=== PATIENT | male | born 1960 | race Caucasian/White ===

== ENCOUNTER 2023-03-20 20:40 | Inpatient (IN) | payer BC ==
[2023-03-20] MEDS ORDERED: IBUPROFEN 400 MG TAB ONE (21:21)
[2023-03-20] MEDS ORDERED: LORazepam 2 MG/ML VIAL ONE (21:21)
[2023-03-20] MEDS ORDERED: NA CHLORIDE 0.9% 1,000 ML ONE ×2 (21:21→22:57)
[2023-03-20 21:26] LABS: Absolute Lymphocytes (CBC) 1.7 K/uL (0.7-4.9); Hematocrit 32.7 % (39.6-49.0); Lymphocytes % 19.9 % (15.3-44.8); MCV 95.9 fL (80-100); MPV 6.5 fL (7.6-11.3); Platelets 293 thou/uL (152-406)
[2023-03-20 21:36] LABS: Protime INR 1.02
--- NOTE | 2023-03-20 21:36 | RAD REPORT ---
EXAM DESCRIPTION: CT - Head Brain Wo Cont - 03/20/2023 9:23 pm CLINICAL HISTORY: Dizziness COMPARISON: none TECHNIQUE: Computed axial tomography of the head was obtained. IV contrast was not requested. All CT scans are performed using dose optimization technique as appropriate and may include automated exposure control or mA/KV adjustment according to patient size. FINDINGS: An intracranial bleed is not seen The ventricles are normal in caliber No significant hypodense areas within the brain visualized No extra-axial fluid collection is noted. Fluid within the sinuses/ mastoids is not seen IMPRESSION: No acute intracranial abnormality is seen If patient's symptoms persist MRI of the brain would be recommended
--- NOTE | 2023-03-20 21:38 | RAD REPORT ---
EXAM DESCRIPTION: RAD -Hand Left 3 View - 03/20/2023 9:17 pm CLINICAL HISTORY: Left hand pain status post injury FINDINGS: No fracture or dislocation is seen.
[2023-03-20 21:50] LABS: ALT/SGPT 32 U/L (16-61); AST/SGOT 25 U/L (15-37); Albumin 3.9 g/dL (3.4-5.0); Alkaline Phosphatase 66 U/L (45-117); BUN Blood Urea Nitrogen 4 mg/dL (7-18); Bicarbonate 18 mEq/L (21-32); Bilirubin Direct 0.1 mg/dL (0-0.2); Bilirubin Indirect, Calculated 0.3 mg/dL (0.2-0.8); Bilirubin Total 0.4 mg/dL (0.2-1.0); Glomerular Filtration Rate 84 ml/min (=/>90); Glucose Level 129 mg/dL (74-106); Potassium 3.6 mEq/L (3.5-5.1); Protein, Total 7.4 g/dL (6.4-8.2); Sodium Level 121 mEq/L (136-145)
[2023-03-20 23:19] LABS: Barbiturates NEGATIVE (NEGATIVE); Benzodiazepines NEGATIVE (NEGATIVE); Cocaine NEGATIVE (NEGATIVE); METHAMPHETAM NEGATIVE (NEGATIVE); Opiates NEGATIVE (NEGATIVE); Phencyclidine NEGATIVE (NEGATIVE); THC Cannibis NEGATIVE (NEGATIVE)
--- NOTE | 2023-03-20 23:21 | ER ---
Nurse's Notes [facility] Name: Wilfredo Orellana Age: 62 yrs Sex: Male : 1960 Arrival Date: 03/20/2023 Time: 20:40 Bed 16 Private MD: Diagnosis: Hypo-osmolality and hyponatremia;Hyponatremia, acute seizure related to hyponatremia, left hand contusion, left hand abrasion, history of alcohol abuse, altered mental status Presentation: 03/20 20:53 Chief complaint: Patient states: pt was getting ready to come to ER for left hand as6 injury from a crossbow and pt felt weak while getting ready and reported tremors. on arrival to ER pt had a near syncopal episode in the lobby and was assisted to ground. pt reports no hitting of head. Coronavirus screen: At this time, the client does not indicate any symptoms associated with coronavirus-19. Ebola Screen: No symptoms or risks identified at this time. Initial Sepsis Screen: Does the patient meet any 2 criteria? No. Patient's initial sepsis screen is negative. Does the patient have a suspected source of infection? No. Patient's initial sepsis screen is negative. Risk Assessment: Do you want to hurt yourself or someone else? Patient reports no desire to harm self or others. Onset of symptoms was March 20, 2023. 20:53 Acuity: MEDINA 2 as6 20:53 Method Of Arrival: Wheelchair as6 Historical: - Allergies: 20:51 No Known Allergies; as6 - PMHx: 20:51 Hypertensive disorder; Hypothyroidism; Hypercholesterolemia; as6 - PSHx: 20:51 elbow; as6 - Immunization history:: Last tetanus immunization: > 10 years ago. - Social history:: Smoking status: Patient reports use of chewing tobacco. - Family history:: not pertinent. Screenin:55 [facility] ED Fall Risk Assessment (Adult) Score/Fall Risk Level 3 or more points = High as6 Risk. Abuse screen: Denies threats or abuse. Denies injuries from another. Nutritional screening: No deficits noted. Tuberculosis screening: No symptoms or risk factors identified. Assessment: 21:57 General: Appears uncomfortable, well groomed, well developed, well nourished, Behavior me1 is calm, cooperative, appropriate for age, Reports injury to left hand that happened earlier today with a crossbow. reports patient was in severe pain and weak and started having tremors. Upon arrival to ER when coming inside lobby the patient had a near syncopal episode and was assisted to the floor. Patient did not fall and denies hitting his head. Pain: Complains of pain in left hand Pain does not radiate. Pain currently is 10 out of 10 on a pain scale. Quality of pain is described as throbbing, Pain began suddenly, Is continuous. Neuro: Level of Consciousness is awake, alert, obeys commands, Oriented to person, place, time, situation, Appropriate for age. Neuro: Reports a syncopal episode. Cardiovascular: Capillary refill < 3 seconds Patient's skin is warm and dry. Respiratory: Airway is patent Respiratory effort is even, unlabored, Respiratory pattern is regular, symmetrical. Musculoskeletal: Reports pain in left hand since about 4:30 pm when he injured his left hand with a crossbow. . 22:40 Reassessment: Patient and/or family updated on plan of care and expected duration. Pain ha1 level reassessed. Patient is alert, oriented x 3, equal unlabored respirations, skin warm/dry/pink. 23:40 Reassessment: Patient and/or family updated on plan of care and expected duration. Pain ha1 level reassessed. Patient is alert, oriented x 3, equal unlabored respirations, skin warm/dry/pink. 03/21 00:40 Reassessment: Patient and/or family updated on plan of care and expected duration. Pain ha1 level reassessed. Patient is alert, oriented x 3, equal unlabored respirations, skin warm/dry/pink. 00:50 Reassessment: report given to TIFFANIE Knowles. ha1 Vital Signs: 03/20 20:52 BP 153 / 94; Pulse 97; Resp 23 S; Temp 98(O); Pulse Ox 100% on R/A; Weight 74.84 kg as6 (R); Height 5 ft. 9 in. (R); Pain 03/16; 22:45 BP 130 / 91; Pulse 97; Resp 17 S; Pulse Ox 100% on R/A; ha1 03/21 00:08 BP 137 / 94; Pulse 98; Resp 16; Pulse Ox 100% on R/A; me1 01:00 BP 137 / 95; Pulse 98; Resp 16 S; Pulse Ox 100% on R/A; ha1 03/20 20:52 Body Mass Index 24.37 (74.84 kg, 175.26 cm) as6 03/20 20:52 Pain Scale: Adult as6 ED Course: 03/20 20:42 Patient arrived in ED. jj6 20:42 Aamir Schafer MD is Attending Physician. sp4 20:50 Arm band placed on. as6 20:52 Maria Del Rosario Lopez RN is Primary Nurse. me1 20:55 Triage completed. as6 20:55 Placed in gown. Bed in low position. Call light in reach. Side rails up X2. Adult w/ as6 patient. 21:06 Inserted saline lock: 22 gauge in right antecubital area, using aseptic technique. me1 21:06 Acetaminophen Sent. me1 21:06 Basic Metabolic Panel Sent. me1 21:06 CBC with Diff Sent. me1 21:06 ETOH Level Sent. me1 21:06 Hepatic Function Sent. me1 21:06 PT-INR Sent. me1 21:06 Ptt, Activated Sent. me1 21:19 Hand Left 3 View XRAY In Process Unspecified. EDMS 21:25 CT Head Brain wo Cont In Process Unspecified. EDMS 21:57 Provided Education on: POC. Verbalized understanding. . me1 21:57 No provider procedures requiring assistance completed. me1 23:19 Orion Patino MD is Hospitalizing Provider. sp4 23:20 BMP Sent. me1 03/21 00:05 Report received from TIFFANIE Villalobos. ha1 01:29 Patient admitted, IV remains in place. as6 Administered Medications: 03/20 21:14 Drug: Ativan IVP 2 mg IVP once Route: IVP; Site: right antecubital; me1 21:56 Follow up: Response: No adverse reaction me1 21:14 Drug: Ibuprofen PO 800 mg PO once Route: PO; me1 21:56 Follow up: Response: No adverse reaction me1 21:15 Drug: NS 0.9% IV 1000 ml IV at 1 bolus Per protocol; 1000 mL bolus Route: IV; Rate: 1 me1 bolus; Site: right antecubital; 22:50 Drug: NS 0.9% IV 1000 ml IV at 1 bolus Per protocol; 1000 mL bolus Route: IV; Rate: 1 ha1 bolus; Site: right antecubital; 23:34 Drug: Keppra IV 1000 mg IV at bolus once Route: IV; Rate: bolus; Site: right ha1 antecubital; 03/21 00:00 Follow up: Response: No adverse reaction; IV Status: Completed infusion ha1 03/20 23:38 Not Given (Patient Objection): tetanus-diphtheria toxoidped 0.5 ml IM once; Provide me1 Vaccine Information Statement (VIS). Medication: 03/21 01:28 VIS not applicable for this client. as6 Outcome: 03/20 23:20 Decision to Hospitalize by Provider. sp4 03/21 01:28 Admitted to ICU accompanied by nurse, via stretcher, room 1, on monitor, with chart, as6 Condition: stable Instructed on the need for admit, 01:29 Patient left the ED. as6 Signatures: Dispatcher [employer] Christie [email or web address] Tavon Whitmore RN RN as6 Mary Garza RN RN 1 Aamir Schafer MD MD sp4 Maria Del Rosario Lopez RN RN me1
--- NOTE | 2023-03-20 23:21 | EDPHYS ---
Physician Documentation [facility] Name: Wilfredo Orellana Age: 62 yrs Sex: Male : 1960 Arrival Date: 03/20/2023 Time: 20:40 Bed 16 Private MD: ED Physician Aamir Schafer HPI: 03/20 20:42 This 62 yrs old Male presents to ER via Unassigned with complaints of Seizure.sp4 23:27 Patient is 62-year-old male with history of prolonged alcohol abuse history of sp4 detoxification rehabilitation starting 02/16/2023 and exiting rehabilitation on 03/16/2023 at the rehabilitation facility in [place]. Today patient has developed generalized weakness developed convulsive episode lasting few minutes on the parking lot of the hospital. Patient states that today at home he sustained contusion and abrasion to the left hand via the handle of a crossbow. Patient then rubbed CBD oil on his left hand and developed generalized weakness. Patient was brought to the parking lot of the hospital where he developed convulsive episode. Patient was unresponsive for several minutes after that he became responsive. Patient denied any past medical history of seizures reported history of hypertension he takes olmesartan . Denied any alcohol abuse since he has entered into rehab on 02/16/2023. Historical: - Allergies: 20:51 No Known Allergies; as6 - PMHx: 20:51 Hypertensive disorder; Hypothyroidism; Hypercholesterolemia; as6 - PSHx: 20:51 elbow; as6 - Immunization history:: Last tetanus immunization: > 10 years ago. - Social history:: Smoking status: Patient reports use of chewing tobacco. - Family history:: not pertinent. ROS: 23:27 Constitutional: Negative for fever, chills, and weight loss, positive for generalized sp4 weakness, episode of unresponsiveness, an episode of convulsive activity. 23:27 MS/Extremity: Positive left hand injury, left hand contusion left hand abrasion 23:27 All other systems are negative, Exam: 23:30 Constitutional: This is a well developed, well nourished patient who is awake, alert, sp4 and in no acute distress. Head/Face: Normocephalic, atraumatic. Eyes: Pupils equal round and reactive to light, extra-ocular motions intact. Lids and lashes normal. Conjunctiva and sclera are not injected. Cornea within normal limits. Periorbital areas with no swelling, redness, or edema. ENT: Nares patent. No nasal discharge, no septal abnormalities noted. Tympanic membranes are normal and external auditory canals are clear. Oropharynx with no redness, swelling, or masses, exudates, or evidence of obstruction, uvula midline. Mucous membranes moist. Neck: Trachea midline, no thyromegaly or masses palpated, and no cervical lymphadenopathy. Supple, full range of motion without nuchal rigidity, or vertebral point tenderness. Chest/axilla: Normal chest wall appearance and motion. Nontender with no deformity. No lesions are appreciated. Cardiovascular: Regular rate and rhythm with a normal S1 and S2. No gallops, murmurs, or rubs. Normal PMI, no JVD. No pulse deficits. Respiratory: Lungs have equal breath sounds bilaterally, clear to auscultation and percussion. No rales, rhonchi or wheezes noted. No increased work of breathing, no retractions or nasal flaring. Abdomen/GI: Soft, non-tender, with normal bowel sounds. No distension or tympany. No guarding or rebound. No evidence of tenderness throughout. Back: No spinal tenderness. No costovertebral tenderness. Skin: Warm, dry with normal turgor. Normal color with no rashes, no lesions, and no evidence of cellulitis. MS/ Extremity: Pulses equal, no cyanosis. Neurovascular intact. Full, normal range of motion. Left hand dorsal surface ulnar side contusion, hematoma, abrasion . Neuro: Awake and alert, GCS 15, oriented to person, place, time, and situation. Cranial nerves II-XII grossly intact. Motor strength 5/5 in all extremities. Sensory grossly intact. Psych: Awake, alert, with orientation to person, place and time. Behavior, mood, and affect are within normal limits Vital Signs: 20:52 BP 153 / 94; Pulse 97; Resp 23 S; Temp 98(O); Pulse Ox 100% on R/A; Weight 74.84 kg as6 (R); Height 5 ft. 9 in. (R); Pain 10/10; 22:45 BP 130 / 91; Pulse 97; Resp 17 S; Pulse Ox 100% on R/A; ha1 03/21 00:08 BP 137 / 94; Pulse 98; Resp 16; Pulse Ox 100% on R/A; me1 01:00 BP 137 / 95; Pulse 98; Resp 16 S; Pulse Ox 100% on R/A; ha1 03/20 20:52 Body Mass Index 24.37 (74.84 kg, 175.26 cm) as6 03/20 20:52 Pain Scale: Adult as6 MDM: 03/20 20:49 Patient medically screened. sp4 23:20 Differential diagnosis: cerebral vascular accident, drug overdose, cardiac arrhythmia, sp4 seizure, TIA. Data reviewed: vital signs, nurses notes, lab test result(s), radiologic studies, CT scan, plain films. Consideration of Admission/Observation Patient was admitted/placed on observation. Escalation of care including admission/observation considered. Management of patient was discussed with the following: Hospitalist: Admission team. ED course: Patient's sodium is very low at 120 with repeat sodium 121. This is the most likely cause of the seizure. Patient reports he has not had alcohol since he and third detoxification facility on 02/16/2023. Patient was discharged from detoxification facility on 03/16/2023. . 23:25 ED course: CT head - EXAM DESCRIPTION: CT - Head Brain Wo Cont - 03/20/2023 9:23 pm sp4 CLINICAL HISTORY: Dizziness COMPARISON: none TECHNIQUE: Computed axial tomography of the head was obtained. IV contrast was not requested. All CT scans are performed using dose optimization technique as appropriate and may include automated exposure control or mA/KV adjustment according to patient size. FINDINGS: An intracranial bleed is not seen The ventricles are normal in caliber No significant hypodense areas within the brain visualized No extra-axial fluid collection is noted. Fluid within the sinuses/ mastoids is not seen IMPRESSION: No acute intracranial abnormality is seen If patient's symptoms persist MRI of the brain would be recommended. ED course: Hand X ray - EXAM DESCRIPTION: RAD -Hand Left 3 View - 03/20/2023 9:17 pm CLINICAL HISTORY: Left hand pain status post injury FINDINGS: No fracture or dislocation is seen.. 03/20 20:48 Order name: Urine Drug Screen; Complete Time: 23:31 sp4 03/20 20:49 Order name: Acetaminophen; Complete Time: 22:07 sp4 03/20 20:49 Order name: Basic Metabolic Panel; Complete Time: 22:07 sp4 03/20 20:49 Order name: CBC with Diff; Complete Time: 22:07 03/20 20:49 Order name: ETOH Level; Complete Time: 22:07 03/20 20:49 Order name: Hepatic Function; Complete Time: 22:07 03/20 20:49 Order name: PT-INR; Complete Time: 22:07 03/20 20:49 Order name: Ptt, Activated; Complete Time: 22:07 03/20 20:49 Order name: Salicylate; Complete Time: 22:07 03/20 22:07 Order name: BMP; Complete Time: 23:50 03/20 23:12 Order name: Osmolality, Serum; Complete Time: 23:58 03/20 23:12 Order name: Urine Osmolality; Complete Time: 23:58 03/20 23:12 Order name: Urine Potassium Random; Complete Time: 23:29 03/20 23:12 Order name: Urine Sodium Random; Complete Time: 23:29 wv03/20 23:12 Order name: Urine Creatinine; Complete Time: 23:50 03/20 23:13 Order name: BNP; Complete Time: 23:50 03/20 20:49 Order name: CT Head Brain wo Cont; Complete Time: 22:07 03/20 20:50 Order name: Hand Left 3 View XRAY; Complete Time: 22:07 03/20 20:49 Order name: EKG; Complete Time: 20:50 03/20 20:49 Order name: EKG - Nurse/Tech; Complete Time: 21:34 03/20 20:49 Order name: IV Saline Lock; Complete Time: 21:06 03/20 20:49 Order name: Labs collected and sent; Complete Time: 21:06 03/20 23:19 Order name: Wound Care; Complete Time: 00:16 sp4 Administered Medications: 21:14 Drug: Ativan IVP 2 mg IVP once Route: IVP; Site: right antecubital; me1 21:56 Follow up: Response: No adverse reaction me1 21:14 Drug: Ibuprofen PO 800 mg PO once Route: PO; me1 21:56 Follow up: Response: No adverse reaction me1 21:15 Drug: NS 0.9% IV 1000 ml IV at 1 bolus Per protocol; 1000 mL bolus Route: IV; Rate: 1 me1 bolus; Site: right antecubital; 22:50 Drug: NS 0.9% IV 1000 ml IV at 1 bolus Per protocol; 1000 mL bolus Route: IV; Rate: 1 ha1 bolus; Site: right antecubital; 23:34 Drug: Keppra IV 1000 mg IV at bolus once Route: IV; Rate: bolus; Site: right ha1 antecubital; 03/21 00:00 Follow up: Response: No adverse reaction; IV Status: Completed infusion ha1 03/20 23:38 Not Given (Patient Objection): tetanus-diphtheria toxoidped 0.5 ml IM once; Provide me1 Vaccine Information Statement (VIS). Disposition Summary: 03/20/23 23:20 Hospitalization Ordered Notes: Hospitalization Status: Inpatient Admission sp4 Provider: Orion Patino spKristin Condition: Serious sp4 Problem: new sp4 Symptoms: have improved sp4 Bed/Room Type: Standard sp4 Location: Intensive Care Unit(03/20/23 23:27) sp4 Room Assignment: 1-(03/21/23 00:08) cg Diagnosis - Hypo-osmolality and hyponatremia sp4 - Hyponatremia, acute seizure related to hyponatremia, left hand contusion, left hand sp4 abrasion, history of alcohol abuse, altered mental status Forms: - Medication Reconciliation Form sp4 - SBAR form sp4 - Leadership Thank You Letter sp4 Critical care time excluding procedures: 23:26 Critical care time: Bedside Care: 46 minutes, Consultation: 12 minutes, Family sp4 Intervention: 12 minutes. Total time: 70 minutes Signatures: Dispatcher [employer] Harjinder Kovacs, INSURANCE LOSS ASSESSOR-C INSURANCE LOSS ASSESSOR-Cla1 Jayne Mae, RN RN cg Tavon Whitmore, TIFFANIE fisher6 Mary Garza RN RN ha1 Aamir Schafer MD MD sp4 Maria Del Rosario Lopez RN RN me1 Corrections: (The following items were deleted from the chart) 23:20 Telemetry/MedSurg (Inpatient) sp4 sp4 23: 23:20 sp4 sp4 03/21 00:08 03/20 23:27 sp4 cg
[2023-03-20 23:30] LABS: Methadone ND (NEGATIVE)
[2023-03-20] MEDS ORDERED: TDAP (DIPHTH,PERTUSS(ACELL),TET VAC) 0.5 ML VIAL IMVAC ONE (23:37)
[2023-03-20] MEDS ORDERED: LEVETIRACETAM 500 MG/5 ML VIAL IV ONE (23:37)
[2023-03-20] MEDS ORDERED: NA CHLORIDE 0.9% 100 ML ONE (23:37)
[2023-03-20 23:48] LABS: Potassium 4.1 mEq/L (3.5-5.1)
[2023-03-21] MEDS ORDERED: ONDANSETRON 4 MG/2 ML VIAL IV PRN (00:26)
[2023-03-21] MEDS ORDERED: ACETAMINOPHEN 500 MG TAB PO PRN (00:26)
--- NOTE | 2023-03-21 00:27 | P.HP ---
Certification for Inpatient Patient admitted to: Inpatient With expected LOS: >2 Midnights Patient will require the following post-hospital care: None Practitioner: I am a practitioner with admitting privileges, knowledge of patient current condition, hospital course, and medical plan of care. Services: Services provided to patient in accordance with Admission requirements found in Title 42 Section 412.3 of the Code of Federal Regulations <Harjinder Lai - Last Filed: 03/21/23 00:24> Patient History Date of Service: 03/21/23 Reason for admission: Hyponatremia, syncope History of Present Illness: 62-year-old male with history of hypertension, hyperlipidemia, hypothyroidism, alcohol abuse who was recently discharged from a rehab facility for alcohol presents emergency department chief complaint of weakness, syncope. He used to drink approximately 12 pack/day last drink was on February 16. He was out hunting yesterday and had a minor injury to his hand from a crossbow, was getting ready to come to the hospital to be evaluated for this when changing his close he had a near syncopal episode. His dropped him off at the front of the hospital and when he was walking towards the front he had a single episode witnessed by bystanders who assisted him to the ground. He did report losing consciousness during this episode which lasted for 30 seconds to 1 minute. There was some questionable seizure activity but it sounds more like syncope rather than seizure, there is no postictal period. He was evaluated in the emergency department his initial labs were significant for a sodium of 121 and chloride of 86 bicarb of 18 glucose 129, he was given 2 L of IV fluidsNS in the emergency department repeat chemistry was obtained between his 2 L of fluids sodium remains the same at 121 chloride 90 bicarb 22 LFTs are normal BNP 91 urine electrolytes ordered and pending he does take medication for blood pressure although he is unsure what kind he does not think it includes a diuretic like hydrochlorothiazide. He has no known history of hyponatremia. CT of the head was performed which was negative for acute findings. ED provider wishes to admit patient for further evaluation and management of syncope, hyponatremia. - Past Medical/Surgical History -: Hypertension -: Hyperlipidemia -: Hypothyroidism -: History of alcohol abuse -: Left elbow surgery Psychosocial/ Personal History: Lives at home with his - Family History Family History: Reviewed- Non-Contributory - Social History Smoking Status: Never smoker Alcohol use: No CD- Drugs: No Caffeine use: Yes Place of Residence: Home <Harjinder Lai Ephraim Dumont - Last Filed: 03/21/23 00:24> Date of Service: 03/21/23 <Orion Patino - Last Filed: 03/21/23 12:47> Review of Systems 10-point ROS is otherwise unremarkable General: Weakness, Malaise <JoelleHarjinder Dumont - Last Filed: 03/21/23 00:24> Physical Examination - Physical Exam General: Alert, In no apparent distress, Oriented x3 HEENT: Atraumatic, PERRLA, Mucous membr. moist/pink, EOMI, Sclerae nonicteric Neck: Supple, 2+ carotid pulse no bruit, No LAD, Without JVD or thyroid abnormality Respiratory: Clear to auscultation bilaterally, Normal air movement Cardiovascular: Regular rate/rhythm, Normal S1 S2 Capillary refill: <2 Seconds Gastrointestinal: Normal bowel sounds, No tenderness Musculoskeletal: No tenderness Integumentary: No rashes Neurological: Normal speech, Normal strength at 5/5 x4 extr, Normal tone, Normal affect - Studies Laboratory Data (last 24 hrs) 03/20/23 03/20/23 03/20/23 23:18 21:03 21:03 WBC 8.50 Hgb 11.5 L Hct 32.7 L Plt Count 293 PT 11.2 INR 1.02 APTT 28.0 Sodium 121 L Potassium 4.1 D BUN 3 L Creatinine 0.76 Glucose 124 H Total Bilirubin AST ALT Alkaline Phosphatase 03/20/23 21:03 WBC Hgb Hct Plt Count PT INR APTT Sodium 121 L Potassium 3.6 BUN 4 L Creatinine 1.02 Glucose 129 H Total Bilirubin 0.4 AST 25 ALT 32 Alkaline Phosphatase 66 <JoelleHarjinder Dumont - Last Filed: 03/21/23 00:24> - Studies Laboratory Data (last 24 hrs) 03/20/23 03/20/23 03/20/23 23:18 21:03 21:03 WBC 8.50 Hgb 11.5 L Hct 32.7 L Plt Count 293 PT 11.2 INR 1.02 APTT 28.0 Sodium 121 L Potassium 4.1 D BUN 3 L Creatinine 0.76 Glucose 124 H Total Bilirubin AST ALT Alkaline Phosphatase 03/20/23 21:03 WBC Hgb Hct Plt Count PT INR APTT Sodium 121 L Potassium 3.6 BUN 4 L Creatinine 1.02 Glucose 129 H Total Bilirubin 0.4 AST 25 ALT 32 Alkaline Phosphatase 66 <Orion Patino - Last Filed: 03/21/23 12:47> Assessment and Plan - Plan Assessment: Hyponatremia Syncope Hypertension Hyperlipidemia Hypothyroidism History of alcohol abuse Plan: Hyponatremia Additional labs, urine electrolytes ordered. No increase in sodium after first liter of NS, ED has given an additional liter of normal saline since then. We will continue gentle IV hydration, repeat chemistry every 4 hours. Nephrology to be consulted, will review home medications once available. Patient unsure of what medications he is on. Syncope Trend troponins, monitor on telemetry. Possibly related to hyponatremia/dehydration. Hypertension Continue home medications, hold HCTZ or other contributing medications if he is on them. Hyperlipidemia Continue home medication Hypothyroidism Thyroid panel in the morning, continue home medication History of alcohol abuse Reports last drink was on 02/16/2023, EtOH level 0, denies ingestion of other toxic substances including cytogeneticist, antifreeze. DVT PPX: Lovenox Code status: Full Discharge Plan: Home Plan to discharge in: 48 Hours - Advance Directives Does patient have a Living Will: No Does patient have a Durable POA for Healthcare: No - Code Status/Comfort Care Code Status Assessed: Yes (Full code) Critical Care: No Time Spent Managing Pts Care (In Minutes): 55 <Harjinder Lai - Last Filed: 03/21/23 00:24> - Plan Patient seen on rounds this morning. sleepy from keppra/ativan BP remains low, MAPS: 60-65 Awake/alert/oriented sodium corrected rapidly and hypotensive 500 bolus D5w, 1mcg desmopressin - nephro consulted repeat labs at noon <Orion Patino - Last Filed: 03/21/23 12:47>
[2023-03-21] MEDS ORDERED: NA CHLORIDE 0.9% 1,000 ML IV SCH (01:00)
[2023-03-21 02:09] VITALS: O2SAT 97
[2023-03-21 03:36] LABS: Potassium 3.6 mEq/L (3.5-5.1)
[2023-03-21 03:42] LABS: Thyroid Stimulating Hormone 4.49 uIU/mL (0.358-3.740)
[2023-03-21] MEDS: ENOXAPARIN 40 MG/0.4 ML SQ SCH (08:20)
[2023-03-21 08:36] LABS: Absolute Lymphocytes (CBC) 0.7 K/uL (0.7-4.9); Hematocrit 32.5 % (39.6-49.0); Lymphocytes % 9.3 % (15.3-44.8); MCV 95.9 fL (80-100); MPV 6.2 fL (7.6-11.3); Platelets 283 thou/uL (152-406); RBC Red Blood Cell Count 3.39 M/uL (4.33-5.43)
[2023-03-21 08:50] LABS: Potassium 4.1 mEq/L (3.5-5.1)
[2023-03-21 08:56] LABS: Magnesium 2.3 mg/dL (1.6-2.4); Phosphorus 3.2 mg/dL (2.5-4.9)
[2023-03-21] MEDS: D5W 500 ML IV SCH ×3 (09:38→11:30)
[2023-03-21] MEDS ORDERED: DESMOPRESSIN 4 MCG/ML AMP IV ONE (10:00)
[2023-03-21 13:17] LABS: Troponin High Sensitivity 7.4 pg/mL (<58.9)
--- NOTE | 2023-03-21 13:29 | P.CNS ---
Date of Consult: 03/21/23 Reason for Consult: Hyponatremia Requesting Physician: Orion Patino Chief Complaint: Hyponatremia, syncope History of Present Illness: 62M w/ PMHx of Htn on olmesartan/amlodipine/HCTZ table, HLD, etoh abuse, hypothyroidism, & depression/anxiety on paxil, who had presyncope & found to have hyponatremia 121. He reports his last alcohol intake was a month ago. He has decreased by mouth solid food intake recently. He complained of left hand pain and received ibuprofen in the ER. He received NS IV fluid and serum sodium increased to 134 after a few hours. He then received DDAVP and D5 water IV bolus and serum sodium decreased to 132. Allergies No Known Allergies Allergy (Unverified 03/21/23 00:26) Home Medications: Olmesartan/Amlodipin/Hcthiazid [[id number] 40-10-25Mg] 1 tab PO DAILY 03/21/23 PARoxetine HCL [Paxil*] 10 mg PO DAILY 03/21/23 PARoxetine HCL [Paxil] 30 mg PO DAILY 03/21/23 Rosuvastatin Calcium 40 mg PO DAILY 03/21/23 - Past Medical/Surgical History Diabetic: No -: Hypertension -: Hyperlipidemia -: Hypothyroidism -: History of alcohol abuse -: Left elbow surgery Psychosocial/ Personal History: Lives at home with his - Social History Alcohol use: Yes CD- Drugs: No Caffeine use: Yes Place of Residence: Home Review of Systems General: Weakness Eyes: Unremarkable ENT: Unremarkable Respiratory: Unremarkable Cardiovascular: Other (presyncope), Unremarkable Gastrointestinal: Unremarkable Musculoskeletal: Unremarkable Integumentary: Unremarkable Neurological: Weakness Lymphatics: Unremarkable Physical Examination Temp Pulse Resp BP Pulse Ox 98.2 F 89 15 117/76 97 03/21/23 12:00 03/21/23 12:00 03/21/23 12:00 03/21/23 12:00 03/21/23 12:00 General: Other (appears as his stated age) HEENT: Atraumatic, Normocephalic Neck: Supple Respiratory: Other (symmetric chest expansion) Cardiovascular: No rubs, No murmurs Gastrointestinal: Soft and benign, No ascites, No rebound Musculoskeletal: No clubbing Integumentary: No warmth Neurological: Normal speech, Normal tone Lymphatics: No axilla or inguinal lymphadenopathy Urinary: Other (no bladder distention) External genitalia: Deferred Rectal: Deferred Laboratory Data (last 24 hrs) 03/20/23 03/20/23 03/20/23 23:18 21:03 21:03 WBC 8.50 Hgb 11.5 L Hct 32.7 L Plt Count 293 PT 11.2 INR 1.02 APTT 28.0 Sodium 121 L Potassium 4.1 D BUN 3 L Creatinine 0.76 Glucose 124 H Total Bilirubin AST ALT Alkaline Phosphatase 03/20/23 21:03 WBC Hgb Hct Plt Count PT INR APTT Sodium 121 L Potassium 3.6 BUN 4 L Creatinine 1.02 Glucose 129 H Total Bilirubin 0.4 AST 25 ALT 32 Alkaline Phosphatase 66 Conclusions/Impression: # Hypotonic, euvolemic, presumed chronic, symptomatic, moderate-degree hyponatremia 2/2 appropriate ADH release from HCTZ/pain/ibuprofen/anxiety/depression + low solute intake Serum Na 121 on adm, overcorrected to 134, decreased to 129 Hx of ETOH abuse. Last etoh intake a month ago. Hx of hypothyroidism. Urine chem showed high ADH state BUN low. Serum uric acid wnl. Underlying true SIADH or SLN unlikely. BNP wnl Restrict by mouth fluid intake to 1.5 L per day until serum sodium is consistently above 130 meq/L KCl repletion when necessary to keep serum K at 4.0 or higher Avoid hypomagnesemia Avoid thiazides permanently Tylenol when necessary for mild pain. Tramadol when necessary for moderate pain. Avoid NSAIDs. Optimize SSRI dosing for anxiety/depression Encourage by mouth solid food intake, at least half a plate per meal, 3 times a day Long-term serum sodium goal above 1 30 mg/L to prevent imbalance/falls # Presyncope Head CT neg Per other services # Htn Had hypotensive episodes, now resolved Avoid thiazide as above # HLD Rosuvastatin
[2023-03-21] MEDS ORDERED: D5W 1,000 ML IV SCH (14:00)
[2023-03-21 15:43] LABS: Potassium 3.7 mEq/L (3.5-5.1); Uric Acid 3.5 mg/dL (3.5-7.2)
[2023-03-21] MEDS ORDERED: POTASSIUM CL SA 10 MEQ TAB PO ONE (16:37)
[2023-03-21 19:08] LABS: Potassium 3.8 mEq/L (3.5-5.1)
[2023-03-21] MEDS ORDERED: D5W 250 ML IV SCH (20:00)
[2023-03-21] MEDS ORDERED: D5W 250 ML IV ONE (20:08)
[2023-03-22 00:28] LABS: Potassium 3.8 mEq/L (3.5-5.1)
[2023-03-22 03:33] LABS: Absolute Lymphocytes (CBC) 1.1 K/uL (0.7-4.9); Hematocrit 31.7 % (39.6-49.0); Lymphocytes % 18.1 % (15.3-44.8); MCV 95.9 fL (80-100); MPV 6.6 fL (7.6-11.3); Platelets 283 thou/uL (152-406)
[2023-03-22 04:01] LABS: Magnesium 1.9 mg/dL (1.6-2.4); Phosphorus 3.5 mg/dL (2.5-4.9); Potassium 3.6 mEq/L (3.5-5.1)
[2023-03-22] MEDS ORDERED: POTASSIUM CL SA 10 MEQ TAB PO ONE ×3 (07:00→09:21)
--- NOTE | 2023-03-22 07:06 | P.PN ---
Date of Service: 03/22/23 Subjective: Feeling better today Hand feels better; minimal numbness, +no pain no new / worsening problems BP slightly improved; in 110s-120 systolic ROS: 10 point ROS as noted above, otherwise negative Physical Exam: GEN: Alert, oriented, NAD HEENT: Normal conjunctiva, sclera anicteric CV: Regular rate and rhythm, no edema Pulm: Nonlabored respirations on room air, clear bilaterally ABD: Soft, nontender, nondistended Neuro: Normal speech, normal affect vitals reviewed Problem List: Hyponatremia Syncope Hypertension Hyperlipidemia Hypothyroidism History of alcohol abuse Hyponatremia Syncope suspect syncopal episode; less suspicious for seizure states all extremities were "shaking" and were also shaking when he was awake/alert in stretcher in ER, all 4 extremities at same time CT head(03/20): No acute intracranial abnormality Additional labs, urine electrolytes ordered. sodium ~same after first liter of NS, ED has given an additional liter of normal saline since then. Nephrology to be consulted continue gentle IV hydration, repeat chemistry q4h. Sodium 129 -> 128 -> 129 syncopal episode possibly related to hyponatremia/dehydration. troponins negative x2, monitor on telemetry. Hypertension Hyperlipidemia Hypothyroidism TSH / free t4: 4.49 / 0.96 respectively confirm home medications, restart as appropriate History of alcohol abuse Reports last drink was on 02/16/2023, EtOH level 0, denies ingestion of other toxic substances including wool carder, antifreeze. VTE: Lovenox Code: Full Dispo: Home ~1 day pending further improvement
[2023-03-22 07:20] VITALS: BMI 24.3
[2023-03-22] MEDS: PARoxetine HCL 10 MG TAB PO SCH (09:12)
[2023-03-22] MEDS: ENOXAPARIN 40 MG/0.4 ML SQ SCH (09:12)
[2023-03-22] MEDS: NA CHLORIDE 0.9% 1,000 ML IV SCH ×2 (11:06→21:27)
[2023-03-22 13:18] LABS: Magnesium 2.1 mg/dL (1.6-2.4); Potassium 4.4 mEq/L (3.5-5.1)
--- NOTE | 2023-03-22 17:06 | EKG ---
Test Date: 2023-03-20 Test Time: 21:31:36 Paleontology Teacher: MEASUREMENT RESULTS: Intervals: Rate: 96 IN: 194 QRSD: 92 QT: 360 QTc: 454 [place]: P: 65 IN: 194 QRS: 84 T: 57 INTERPRETIVE STATEMENTS: Normal sinus rhythm Normal ECG No previous ECG available for comparison Electronically Signed On 03-22-23 17:03:57 CDT by Alverto Sauer
--- NOTE | 2023-03-23 01:03 | PN ---
Date of Progress Note: 03/22/2023 Chief Complaint: Hyponatremia, recent history of syncope. History Of Present Illness: Patient is a 62-year-old man with past medical history of hypertension, on Olmesartan, amlodipine, HCTZ tablet. He has history of alcohol abuse, HIV, hypothyroidism, depression, anxiety, who developed presyncope, and was found to have hyponatremia, sodium of 121. The patient is feeling better today. His appetite is improving. He denies chest pain, palpitation, nausea, vomiting, irregular heartbeat. Physical Examination: Lungs: Clear to auscultation bilaterally. Heart: S1, S2. Abdomen: Soft. Extremities: No edema. Impression And Plan: 1. Hyponatremia. Sodium level is gradually improving. Continue p.o. fluid restriction. Increase p.o. protein intake. Monitor electrolytes closely. 2. Hypothyroidism. Patient is on treatment. Patient will follow up with email deployment specialist. 3. Hyponatremia is multifactorial and he has hypotonic euvolemic presumed chronic symptomatic moderate degree of hyponatremia secondary to ADH release complicated by treatment with HCTZ, ibuprofen, antianxiety medication. Sodium level has improved to 130. Continue to monitor electrolytes. Continue p.o. fluid restriction. 4. History of chronic hyponatremia, hypomagnesemia. The patient was instructed to avoid alcoholic beverages. 5. Hypophosphatemia and hypokalemia. Continue treatment to improve phosphorus and potassium level, monitor electrolytes , continue to supplement. 6. Hypertension. Continue blood pressure medication. 7. Hypokalemia. Avoid HCTZ , continue to monitor electrolytes and provide treatment according to lab results, avoid hypomagnesemia. TAMANNA/MIGUEL ANGEL Voice ID: [id number] Report ID: [id number] SHANEKA
[2023-03-23 04:11] LABS: Magnesium 2.2 mg/dL (1.6-2.4); Phosphorus 3.6 mg/dL (2.5-4.9); Potassium 3.8 mEq/L (3.5-5.1)
[2023-03-23] MEDS: ENOXAPARIN 40 MG/0.4 ML SQ SCH (08:34)
[2023-03-23] MEDS: PARoxetine HCL 10 MG TAB PO SCH (08:34)
--- NOTE | 2023-03-23 09:42 | P.DS ---
Admission Date: 03/21/23 Discharge Date: 03/23/23 Disposition: ROUTINE DISCHARGE Discharge Condition: FAIR Reason for Admission: Hyponatremia, syncope Brief History of Present Illness: 62-year-old male with history of hypertension, hyperlipidemia, hypothyroidism, alcohol abuse who was recently discharged from a rehab facility for alcohol presents emergency department chief complaint of weakness, syncope. He used to drink approximately 12 pack/day last drink was on February 16. He was out hunting yesterday and had a minor injury to his hand from a crossbow, was getting ready to come to the hospital to be evaluated for this when changing his close he had a near syncopal episode. His dropped him off at the front of the hospital and when he was walking towards the front he had a single episode witnessed by bystanders who assisted him to the ground. He did report losing consciousness during this episode which lasted for 30 seconds to 1 minute. There was some questionable seizure activity but it sounds more like syncope rather than seizure, there is no postictal period. He was evaluated in the emergency department his initial labs were significant for a sodium of 121 and chloride of 86 bicarb of 18 glucose 129, he was given 2 L of IV fluidsNS in the emergency department repeat chemistry was obtained between his 2 L of fluids sodium remains the same at 121 chloride 90 bicarb 22 LFTs are normal BNP 91 urine electrolytes ordered and pending he does take medication for blood pressure although he is unsure what kind he does not think it includes a diuretic like hydrochlorothiazide. He has no known history of hyponatremia. CT of the head was performed which was negative for acute findings. ED provider wishes to admit patient for further evaluation and management of syncope, hyponatremia. Hospital Course: Diagnosis Hyponatremia Syncope Hypertension Hyperlipidemia Hypothyroidism History of alcohol abuse Patient admitted to the medical floor and the following medical problems addressed: Hyponatremia Syncope suspected syncopal episode. CT head(03/20): No acute intracranial abnormality Nephrology to be consulted for hyponatremia Patient hydrated with IV normal saline, HCTZ discontinued, SUHAS inhibitor held. Sodium level improved to normal. syncopal episode possibly related to hyponatremia/dehydration. troponins negative. Patient is awake, alert and ambulatory and is deemed stable for discharge. Hypertension Hyperlipidemia Hypothyroidism TSH / free t4: 4.49 / 0.96 respectively Stable. History of alcohol abuse Reports last drink was on 02/16/2023, EtOH level 0. Vital Signs/Physical Exam: Temp Pulse Resp BP Pulse Ox 97.3 F 66 16 140/65 95 03/23/23 08:00 03/23/23 08:00 03/23/23 08:00 03/23/23 08:00 03/23/23 08:00 General: Alert, In no apparent distress, Oriented x3 HEENT: Mucous membr. moist/pink Neck: Supple, JVD not distended Respiratory: Clear to auscultation bilaterally, Normal air movement Cardiovascular: No edema, Regular rate/rhythm, Normal S1 S2 Gastrointestinal: Normal bowel sounds, Soft and benign, Non-distended, No tenderness Musculoskeletal: No swelling Integumentary: No rashes, No cyanosis Neurological: Normal strength at 5/5 x4 extr Laboratory Data at Discharge: WBC 6.10 thou/uL (4.3-10.9) 03/22/23 02:36 Hgb 11.2 g/dL (13.6-17.9) L 03/22/23 02:36 Hct 31.7 % (39.6-49.0) L 03/22/23 02:36 Plt Count 283 thou/uL (152-406) 03/22/23 02:36 PT 11.2 SECONDS (9.5-12.5) 03/20/23 21:03 INR 1.02 03/20/23 21:03 APTT 28.0 SECONDS (24.3-36.9) 03/20/23 21:03 Sodium 136 mEq/L (136-145) D 03/23/23 02:17 Potassium 3.8 mEq/L (3.5-5.1) D 03/23/23 02:17 BUN 7 mg/dL (7-18) 03/23/23 02:17 Creatinine 0.70 mg/dL (0.70-1.30) 03/23/23 02:17 Glucose 87 mg/dL (74-106) 03/23/23 02:17 Uric Acid 3.5 mg/dL (3.5-7.2) 03/21/23 15:11 Phosphorus 3.6 mg/dL (2.5-4.9) 03/23/23 02:17 Magnesium 2.2 mg/dL (1.6-2.4) 03/23/23 02:17 Total Bilirubin 0.4 mg/dL (0.2-1.0) 03/20/23 21:03 AST 25 U/L (15-37) 03/20/23 21:03 ALT 32 U/L (16-61) 03/20/23 21:03 Alkaline Phosphatase 66 U/L (45-117) 03/20/23 21:03 Triglycerides 36 mg/dL (<150) 03/21/23 03:03 Cholesterol 103 mg/dL (<200) 03/21/23 03:03 HDL Cholesterol 50 mg/dL (40-60) 03/21/23 03:03 Cholesterol/HDL Ratio 2.06 03/21/23 03:03 Home Medications: PARoxetine HCL [Paxil*] 10 mg PO DAILY 03/21/23 PARoxetine HCL [Paxil] 30 mg PO DAILY 03/21/23 Rosuvastatin Calcium 40 mg PO DAILY 03/21/23 Amlodipine [Norvasc*] 10 mg PO DAILY #30 tab 03/23/23 Olmesartan Medoxomil 40 mg PO DAILY #30 tab 03/23/23 New Medications: Amlodipine [Norvasc*] 10 mg PO DAILY #30 tab Olmesartan Medoxomil 40 mg PO DAILY #30 tab Diet: AHA Activity: Ad power Time spent managing pt's care (in minutes): 33
[2023-03-23 12:07] VITALS: BP 153/67; TEMP 97.5
--- NOTE | 2023-03-23 13:11 | P.PN ---
Subjective Date of Service: 03/23/23 Chief Complaint: Hyponatremia, syncope Subjective Pt with Hx of HTN on HCTZ, EtOH abuse , and anxiety disorder, admitted fir hyponatremia Sodium corrected to 136 toda , can be discharged from nephrology point of view Physical exam General: Awake, NAD HEENT: Atraumatic, Normocephalic Neck: Supple, no elevated JVD Respiratory: CTAB Cardiovascular: No rubs, No murmurs Gastrointestinal: Soft and benign, Non-distended Musculoskeletal: No clubbing Integumentary: No warmth # Hypotonic, euvolemic due to HCTZ resolved avoid HCTZ can be discharged today , and to follow with nephrology clinic in 1-2 wks # Presyncope possibly due to hyponatremia Head CT neg Per other services # Htn Had hypotensive episodes, now resolved Avoid thiazide as above # HLD Rosuvastatin Physical Examination - Vital Signs Temperature: 97.5 F Blood Pressure: 153/67 Pulse: 69 Respirations: 16 Pulse Ox (%): 95
== END 2023-03-23 13:16 | disposition home or self-care (01) | DRG 641 ==
LOC: ER 20:40 → ERHOLD 03-21 00:04 → 3RD-ICU 03-21 00:09 → 2ND 03-22 00:16
PROVIDERS: ADMIT Hospitalist; ATTEND Internal Medicine
DX: E87.1 Hypo-osmolality and hyponatremia (principal); E86.0 Dehydration; E03.9 Hypothyroidism, unspecified; F41.9 Anxiety disorder, unspecified; E87.6 Hypokalemia; F32.A Depression, unspecified; E83.39 Other disorders of phosphorus metabolism; E78.00 Pure hypercholesterolemia, unspecified; F17.220 Nicotine dependence, chewing tobacco, uncomplicated; S60.222A Contusion of left hand, initial encounter; T50.2X5A Adverse effect of carbonic-anhydrase inhibitors, benzothiadiazides and other diuretics, initial encounter; Z21 Asymptomatic human immunodeficiency virus [HIV] infection status; Z79.899 Other long term (current) drug therapy
CPT/HCPCS: 36415; 70450; 80048; 80061; 80069; 80076; 80143; 80179; 80307; 82077; 82570; 83735; 83880; 83930; 83935; 84100; 84132; 84300; 84439; 84443; 84484; 84550; 85025; 85610; 85730; 93005; 96365; 96375; 99285; J1650; J1953; J2597; J7030; J7060

== ENCOUNTER 2024-06-16 06:55 | Day surgery (SDC) | payer BC ==
[2024-06-16] MEDS ORDERED: propofoL 200 MG/20 ML VIAL IV ONE (07:11)
[2024-06-16] MEDS ORDERED: GLYCOPYRROLATE 0.2 MG/ML SYR ONE (07:11)
[2024-06-16] MEDS ORDERED: LIDOCAINE 1% MPF 30 ML VIAL ONE (07:11)
[2024-06-16] MEDS: Ringers Lactate 1,000 ML IV ONE (07:15)
[2024-06-16 09:20] VITALS: TEMP 98.6
[2024-06-16 09:21] VITALS: BP 128/83; O2SAT 98
--- NOTE | 2024-06-19 11:00 | EKG ---
Test Date: 2024-06-14 Test Time: 11:42:27 Information Management Specialist: ARELY MEASUREMENT RESULTS: Intervals: Rate: 67 IN: 176 QRSD: 92 QT: 370 QTc: 390 [place]: P: 64 IN: 176 QRS: 83 T: 70 INTERPRETIVE STATEMENTS: Normal sinus rhythm Normal ECG Compared to ECG 03/20/2023 21:31:36 No significant changes Electronically Signed On 06-19-24 10:53:53 SIGNAL TESTER by Zacarias Veliz
== END 2024-06-16 09:25 | disposition home or self-care (01) ==
LOC: OR 06:55
PROVIDERS: ATTEND Surgery
PROC: 0DBL8ZX Excision of Transverse Colon, Via Natural or Artificial Opening Endoscopic, Diagnostic (ICD-10-PCS; 2024-06-16)
PROC: 0DBP8ZX Excision of Rectum, Via Natural or Artificial Opening Endoscopic, Diagnostic (ICD-10-PCS; 2024-06-16)
PROC: 0DBM8ZX Excision of Descending Colon, Via Natural or Artificial Opening Endoscopic, Diagnostic (ICD-10-PCS; principal; 2024-06-16 08:00)
DX: R19.5 Other fecal abnormalities (principal); N42.9 Disorder of prostate, unspecified; K57.30 Diverticulosis of large intestine without perforation or abscess without bleeding; K64.8 Other hemorrhoids; D12.7 Benign neoplasm of rectosigmoid junction; D12.4 Benign neoplasm of descending colon; D12.3 Benign neoplasm of transverse colon
CPT/HCPCS: 88305; 45385; J2704; J2003; J7120; 93005